=== PATIENT | male | born 1940 | race Caucasian/White ===

== ENCOUNTER → 2018-11-28 | Outpatient (CLI) | payer MEDICARE, MEDICAID ==
[~2018-11-28] MED LIST: AMLO-150 PO; ASCO10004 PO; CALCIUM PO; CHOL100012 PO; DRON400T PO; FISH OIL PO; FURO-93 PO; GABA300C10 PO; LOSA1TAB22 PO; MAGNESIUM PO; METO50TA82 PO; RIVA20TA PO; SIMV20TA3 PO
== END | disposition home or self-care (01) ==
LOC: CFH 13:17
PROVIDERS: ATTEND Internal Medicine Cardiovascular Disease
DX: I08.0 Rheumatic disorders of both mitral and aortic valves (principal); I71.2 Thoracic aortic aneurysm, without rupture
CPT/HCPCS: 93306